=== PATIENT | female | born 1955 | race Caucasian/White ===

== ENCOUNTER 2019-01-29 16:15 | Emergency (ER) | payer OTHER ==
[2019-01-29 16:22] VITALS: BP 169/76; TEMP 98.2; BMI 28.2
--- NOTE | 2019-01-29 16:23 | PDOC ---
Rapid Medical Evaluation Chief Complaint: Pain, Acute Time Seen by Provider: 01/29/19 16:20 Medical Evaluation: Allergies Allergy/AdvReac Type Severity Reaction Status Date / Time No Known Allergies Allergy Verified 01/29/19 16:19 01/29/19 16:20 I have performed a brief in-person evaluation of this patient. The patient presents with a chief complaint of: suprapubic and b/l back pain x 3 days. report feeling of gas moving through abdomen. Denies dysuria or burning with urination. Pertinent physical exam findings: A&O x 3 I have ordered the following: UA, Ucx The patient will proceed to the ED for further evaluation. Discharge Disposition - Diagnosis Abdominal pain Qualifiers: Abdominal location: lower abdomen, unspecified Qualified Code(s): R10.30 - Lower abdominal pain, unspecified - Discharge Dispostion Condition at time of disposition: Stable - Referrals - Patient Instructions - Post Discharge Activity
[2019-01-29 16:38] LABS: EPI CELLS 0.6 /HPF (0-5/HPF); HYALINE CASTS 1 /lpf (0-8); URINE APPEARANCE CLEAR; URINE BACTERIA 7.1 /hpf (NEGATIVE); URINE BILIRUBIN NEGATIVE (NEGATIVE); URINE COLOR YELLOW; URINE GLUCOSE (UA) NEGATIVE (NEGATIVE); URINE KETONE NEGATIVE (NEGATIVE); URINE LEUK ESTERASE 2+ (NEGATIVE); URINE NITRITE NEGATIVE (NEGATIVE); URINE PROTEIN NEGATIVE (NEGATIVE); URINE RBC 2 /hpf (0-4); URINE UROBILINOGEN 0.2 mg/dL (0.2-1.0); URINE WBC 5 /hpf (0-5)
--- NOTE | 2019-01-29 16:50 | PDOC ---
History of Present Illness - General Chief Complaint: Pain, Acute Stated Complaint: BACK/ABD PAIN Time Seen by Provider: 01/29/19 16:20 - History of Present Illness Initial Comments: 63F with no significant PMH presenting with abdominal pain. Patient states the pain started three days ago and it is described as "sharp." It is located in the suprapubic region and radiates to her bilateral flanks. Patient denies dysuria, frequency, urgency, or hesitancy. Certain movements will make the pain better or worse. Since the pain worsened to 10/10, patient decided to come to the ED for further evaluation. She had taken 800mg ibuprofen at 1pm with no relief of her pain. No history of abdominal surgeries. No nausea or vomiting. Last bowel movement was this morning and was a normal formed brown stool without blood. Patient is postmenopausal. Denies vaginal discharge or bleeding. No history of ovarian cysts or uterine fibroids. Denies history of UTI or kidney stones. No fevers, chills, chest pain, shortness of breath PCP: Dr. William Riley development coordinator: [id number] Past History - Past Medical History Allergies/Adverse Reactions: Allergies Allergy/AdvReac Type Severity Reaction Status Date / Time No Known Allergies Allergy Verified 01/29/19 16:19 Home Medications: Ambulatory Orders Ibuprofen [Motrin -] 600 mg PO TID PRN 01/29/19 Sulfamethoxazole/Trimethoprim [Bactrim Ds Tablet] 1 each PO BID #28 tablet 01/29 COPD: No - Immunization History Immunization Up to Date: (UNKNOWN) - Suicide/Smoking/Psychosocial Hx Smoking History: Never smoked Hx Alcohol Use: No Drug/Substance Use Hx: No Review of Systems - Review of Systems Comments:: Constitutional: no fever, no chills HEENT: no throat pain, no dysphagia Cardiovascular: no chest pain, no palpitations Respiratory: no cough, no shortness of breath Gastrointestinal: +abdominal pain, +flank pain Genitourinary: no dysuria, no frequency Musculoskeletal: no myalgia, no arthralgia Skin: no rash, no itching Neurologic: no headache, no weakness *Physical Exam - Vital Signs Last Vital Signs Temp Pulse Resp BP Pulse Ox 98.2 F 100 H 18 169/76 97 01/29/19 16:19 01/29/19 16:19 01/29/19 16:19 01/29/19 16:19 01/29/19 16:19 - Physical Exam Comments: General: Awake, alert, and fully oriented, in no acute distress Head: No signs of trauma Eyes: EOMI, sclera anicteric ENT: Moist mucus membranes Neck: Normal ROM, supple Lungs: Lungs clear, Normal breath sounds Cardio: Regular rhythm, S1 and S2 present Abdomen: Tender to palpation in suprapubic region. Soft, nondistended. No guarding, no rebound, no masses. +CVA tenderness bilaterally Extremities: Normal range of motion, Distal pulses present SKIN: Warm, Dry, normal turgor Neurologic: Cranial nerves II through XII grossly intact. Normal speech ED Treatment Course - LABORATORY CBC & Chemistry Diagram: 01/29/19 17:43 01/29/19 17:43 - ADDITIONAL ORDERS Additional order review: Laboratory Results 01/29/19 16:26 Urine Color Yellow Urine Appearance Clear Urine pH 8.0 Ur Specific [place] 1.006 L Urine Protein Negative Urine Glucose (UA) Negative Urine Ketones Negative Urine Blood Negative Urine Nitrite Negative Urine Bilirubin Negative Urine Urobilinogen 0.2 Ur Leukocyte Esterase 2+ H Urine WBC (Auto) 5 Urine RBC (Auto) 2 Urine Casts (Auto) 1 U Epithel Cells (Auto) 0.6 Urine Bacteria (Auto) 7.1 Medical Decision Making - Medical Decision Making 63F with no significant PMH presenting with suprapubic and flank pain. DDX including but not limited to UTI, pyelonephritis, nephrolithiasis, fibroids , ovarian cyst 01/29/19 17:33 Vitals significant for tachycardia and hypertension UA with +LE, 5 WBC, 7.1 bacteria Ordered 1g Rocephin 1g Ofirmev for pain 1L NS 01/29/19 17:54 CBC WBC 4.8 K/mm3 (4.0-10.0) 01/29/19 17:43 RBC 4.02 M/mm3 (3.60-5.2) 01/29/19 17:43 Hgb 12.8 GM/dL (10.7-15.3) 01/29/19 17:43 Hct 38.0 % (32.4-45.2) 01/29/19 17:43 MCV 94.6 fl (80-96) 01/29/19 17:43 MCH 31.7 pg (25.7-33.7) 01/29/19 17:43 MCHC 33.6 g/dl (32.0-36.0) 01/29/19 17:43 RDW 13.4 % (11.6-15.6) 01/29/19 17:43 Plt Count 285 K/MM3 (134-434) 01/29/19 17:43 MPV 8.3 fl (7.5-11.1) 01/29/19 17:43 Absolute Neuts (auto) 2.7 K/mm3 (1.5-8.0) 01/29/19 17:43 Neutrophils % 55.1 % (42.8-82.8) 01/29/19 17:43 Lymphocytes % 36.9 % (8-40) 01/29/19 17:43 Monocytes % 6.4 % (3.8-10.2) 01/29/19 17:43 Eosinophils % 0.7 % (0-4.5) 01/29/19 17:43 Basophils % 0.9 % (0-2.0) 01/29/19 17:43 Nucleated RBC % 0 % (0-0) 01/29/19 17:43 Platelet Estimate Adequate 01/29/19 17:43 Platelet Comment Slide scanned 01/29/19 17:43 No anemia or leukocytosis CMP Sodium 141 mmol/L (136-145) 01/29/19 17:43 Potassium 3.8 mmol/L (3.5-5.1) 01/29/19 17:43 Chloride 108 mmol/L (98-107) H 01/29/19 17:43 Carbon Dioxide 26 mmol/L (21-32) 01/29/19 17:43 Anion Gap 7 MMOL/L (8-16) L 01/29/19 17:43 BUN 3.8 mg/dL (7-18) L 01/29/19 17:43 Creatinine 0.9 mg/dL (0.55-1.3) 01/29/19 17:43 Est GFR (CKD-EPI)AfAm 79.42 01/29/19 17:43 Est GFR (CKD-EPI)NonAf 68.53 01/29/19 17:43 Random Glucose 83 mg/dL (74-106) 01/29/19 17:43 Calcium 9.1 mg/dL (8.5-10.1) 01/29/19 17:43 Total Bilirubin 0.5 mg/dL (0.2-1) 01/29/19 17:43 AST 36 U/L (15-37) 01/29/19 17:43 ALT 31 U/L (13-61) 01/29/19 17:43 Alkaline Phosphatase 73 U/L (45-117) 01/29/19 17:43 Total Protein 7.3 g/dl (6.4-8.2) 01/29/19 17:43 Albumin 3.7 g/dl (3.4-5.0) 01/29/19 17:43 ELectrolytes unremarkable Normal Creatinine Patient feeling better. No longer tachycardic. Presentation most consistent with UTI and mild pylenephritis. Patient is non- toxic and HR improved with fluids. Low suspicion for other acute abdominal pathology. Bactrim sent to pharmacy. Plan for discharge 01/29/19 18:58 *DC/Admit/Observation/Transfer Diagnosis at time of Disposition: Pyelonephritis Abdominal pain Qualifiers: Abdominal location: lower abdomen, unspecified Qualified Code(s): R10.30 - Lower abdominal pain, unspecified UTI (urinary tract infection) Qualifiers: Indwelling urinary catheter type: unspecified Encounter type: initial encounter - Discharge Dispostion Disposition: HOME Condition at time of disposition: Stable - Prescriptions Prescriptions: Sulfamethoxazole/Trimethoprim [Bactrim Ds Tablet] 1 each PO BID #28 tablet - Referrals Referrals: ON STAFF,NOT [Primary Care Provider] - - Patient Instructions Printed Discharge Instructions: DI for Kidney Infection, DI for Urinary Tract Infection (UTI) Additional Instructions: You came into the ED for abdominal pain and back pain. Urinalysis shows you have a urinary tract infection. Antibiotics prescription has been sent to your pharmacy. Take as instructed. You can take vxuo-cru-xedmiat tylenol or motrin for pain. Follow the instructions on the medication bottle. Follow up with your primary care physician within one week to discuss this ED visit and for further evaluation of your symptoms. Your care is not complete until you do so. Call and make an appointment. Immediate medical attention is required if you experience: you develop high fevers, chills, persistent vomiting, stop urinating, or any new or concerning symptoms. If you think you have an emergency, call for medical help right away. ==== Entraste en el servicio de urgencias por dolor abdominal y dolor de espalda. El anlisis de orina muestra que usted tiene lebron infeccin del tracto urinario. La prescripcin de antibiticos corona sido enviada a holguin farmacia. Adam segn las instrucciones. Puede adam tylenol o motrin de venta damion para el dolor. Siga las instrucciones en el envase del medicamento. Mariaa un seguimiento con holguin mdico de atencin primaria dentro de lebron semana para hablar sobre esta visita al ED y para lebron evaluacin adicional de ryan sntomas. Holguin cuidado no est completo hasta que lo mariaa. Llame y mariaa lebron pardeep. Se requiere atencin mdica inmediata si experimenta: desarrolla fiebre brit, escalofros, vmitos persistentes, sukh de orinar o cualquier sntoma nuevo o relacionado con los sntomas. Si liliya que tiene lebron emergencia, llame a un mdico de inmediato. Print Language: CROATIAN - Post Discharge Activity
[2019-01-29] MEDS ORDERED: SODIUM CHLORIDE 1,000 ML IV STA (17:35)
[2019-01-29] MEDS ORDERED: ACETAMINOPHEN 1000 MG/100 ML VIAL (NON FORMULARY) IVPB ONE (17:35)
[2019-01-29] MEDS ORDERED: ACETAMINOPHEN INJECTION 100 ML IVPB ONE (17:44)
[2019-01-29] MEDS ORDERED: CEFTRIAXONE 1,000 MG in DEXTROSE 5%-WATER - 50 ML IVPB ONE (17:45)
[2019-01-29] MEDS ORDERED: cefTRIAXone SODIUM 1 GM VIAL ONE (17:52)
[2019-01-29 17:58] LABS: BASO % 0.9 % (0-2.0); EOS % 0.7 % (0-4.5); HEMOGLOBIN 12.8 GM/dL (10.7-15.3); LYMPH % 36.9 % (8-40); MCH 31.7 pg (25.7-33.7); MCHC 33.6 g/dl (32.0-36.0); MEAN CELL VOLUME 94.6 fl (80-96); MEAN PLT VOLUME 8.3 fl (7.5-11.1); MONO % 6.4 % (3.8-10.2); NEUT % 55.1 % (42.8-82.8); RBC 4.02 M/mm3 (3.60-5.2); RDW 13.4 % (11.6-15.6); WHITE BLOOD COUNT 4.8 K/mm3 (4.0-10.0)
[2019-01-29 18:24] LABS: ALBUMIN 3.7 g/dl (3.4-5.0); BILIRUBIN,TOTAL 0.5 mg/dL (0.2-1); BLOOD UREA NITROGEN 3.8 mg/dL (7-18); CALCIUM 9.1 mg/dL (8.5-10.1); CREATININE 0.9 mg/dL (0.55-1.3); POTASSIUM 3.8 mmol/L (3.5-5.1); TOT PROT 7.3 g/dl (6.4-8.2)
[2019-01-29 18:35] VITALS: PULSE 70
--- NOTE | 2019-01-29 19:22 | PDOC ---
Documentation entered by Kendall Tavera SCRIBE, acting as scribe for Carmita Ibarra MD. Carmita Ibarra MD: This documentation has been prepared by the Liang plasencia Collisia, SCRIBE, under my direction and personally reviewed by me in its entirety. I confirm that the documentation accurately reflects all work, treatment, procedures, and medical decision making performed by me. Attending Attestation - Resident Resident Name: Tanisha Pugh - ED Attending Attestation I have performed the following: I have examined & evaluated the patient, The case was reviewed & discussed with the resident, I agree w/resident's findings & plan, Exceptions are as noted - HPI HPI: 01/29/19 18:32 The patient is a 63 year old female with no significant past medical history who presents to the emergency department with suprapubic abdominal pain for 3 days. The patient states that her abdominal pain is located in her suprapubic region and describes it as a 10/10 in severity today. The patient states that her suprapubic pain radiates to her bilateral flanks and describes that pain as sharp. She endorses taking motrin for her symptoms with no relief. She states that she has passed urine about 4-5 times today but states that this is normal for her. She also reports a normal bowel movement today. The patient states that she is menopausal. She denies any vaginal discharge or bleeding. She denies any fever, chills, nausea, vomiting, diarrhea, constipation or urinary symptoms. She denies any chest pain, shortness of breath, headache or dizziness. She denies any other complaints. - Physicial Exam PE: 01/29/19 19:01 GENERAL: Awake, alert, and fully oriented, in no acute distress. Pleasant and non toxic appearing EYES: PERRLA, EOMI, sclera anicteric, conjunctiva clear ENT: Oropharynx clear without exudates. Moist mucosa NECK: Normal ROM, supple, no lymphadenopathy, JVD, or masses LUNGS: Breath sounds equal, clear to auscultation bilaterally. No wheezes, and no crackles HEART: Regular rate and rhythm, normal S1 and S2, no murmurs, rubs or gallops ABDOMEN: Soft, +mild suprapubic ttp, normoactive bowel sounds. No guarding, no rebound. No masses : No CVAT EXTREMITIES: Normal range of motion, no edema. No cords, erythema, or tenderness NEUROLOGICAL: Normal speech, cranial nerves intact, equal strength and sensation b/l SKIN: Warm, Dry, normal turgor, no rashes or lesions noted. - Medical Decision Making 01/29/19 19:07 63yo F presents to the ED with suprapubic and b/l flank pain Initial vitals with HTN and tachycardia, on rpt vitals normalized Exam with mild suprapubic ttp, otherwise unremarkable. Pt is well appearing Labs, UA revealing of UTI In light of flank pain, plan to treat with bactrim as an uncomplicated pyelo Pt has no N/V, fevers and no leukocytosis, is very well appearing Strict return precautions given to pt and daughter I discussed the physical exam findings, ancillary test results and final diagnoses with the patient. I answered all of the patient's questions. The patient was satisfied with the care received and felt comfortable with the discharge plan and treatment plan. The patient will call their primary care physician within 24 hours to arrange follow-up and will return to the Emergency Department with any new, persistent or worsening symptoms.
[2019-01-29 19:56] LABS: PLATELET COUNT 285 K/MM3 (134-434); PLATELET ESTIMATE ADEQUATE
== END 2019-01-29 19:05 | disposition home or self-care (01) ==
LOC: JER 16:15
PROC: 3E03329 Introduction of Other Anti-infective into Peripheral Vein, Percutaneous Approach (ICD-10-PCS; principal; 2019-01-29)
PROC: 3E033NZ Introduction of Analgesics, Hypnotics, Sedatives into Peripheral Vein, Percutaneous Approach (ICD-10-PCS; 2019-01-29)
DX: N39.0 Urinary tract infection, site not specified (principal); N12 Tubulo-interstitial nephritis, not specified as acute or chronic
CPT/HCPCS: 36415; 80053; 81003; 85025; 87086; 96365; 96375; 99283-25; J0131; J7030

== ENCOUNTER 2022-04-17 16:03 | Emergency (ER) | payer OTHER ==
[2022-04-17 16:32] VITALS: BP 141/86; PULSE 66; RESP 18; TEMP 98.3; BMI 29.8
== END 2022-04-17 17:16 | disposition home or self-care (01) ==
LOC: JERFT 16:03
DX: L03.011 Cellulitis of right finger (principal)
CPT/HCPCS: 73140-TC-RT-FY; 99284-25